=== PATIENT | female | born 1955 | race Caucasian/White ===

== ENCOUNTER 2018-03-24 12:29 | Emergency (ER) | payer SELFPAY ==
[~2018-03-24] VITALS: Ht 162.6 cm; Wt 90.3 kg
[2018-03-24 13:19] LABS: BASOPHILS % 0.3 % (0.0-1.0); EOSINOPHILS # (AUTO) 0.5 (0.0-0.4); HEMATOCRIT 42.5 % (34.2-44.1); HEMOGLOBIN 14.1 g/dL (12.0-16.0); LYMPHOCYTES # (AUTO) 2.3 (1.0-3.2); LYMPHOCYTES % 30.1 % (18.0-39.1); MEAN CORPUSCULAR HEMOGLOBIN 28.8 pg (28-32); MEAN CORPUSCULAR HGB CONC 33.2 g/dL (31-35); MEAN CORPUSCULAR VOLUME 86.7 fL (81-99); MONOCYTES # (AUTO) 0.5 (0.2-0.8); MONOCYTES % 6.6 % (4.4-11.3); NEUTROPHILS # (AUTO) 4.2 (2.1-6.9); NEUTROPHILS % 55.7 % (38.7-80.0); PLATELET COUNT 232 x10e3/uL (140-360); RED CELL DISTRIBUTION WIDTH 13.8 % (11.7-14.4)
[2018-03-24 13:29] LABS: INR 1.04; PROTHROMBIN TIME 12.8 seconds (11.9-14.5)
[2018-03-24 13:30] LABS: PARTIAL THROMBOPLASTIN TIME 34.9 seconds (23.8-35.5)
[2018-03-24 13:35] LABS: BILIRUBIN,URINE NEGATIVE (NEGATIVE); CLARITY,URINE CLEAR (CLEAR); COLOR,URINE YELLOW (YELLOW); EPITHELIAL CELLS,URINE RARE /LPF; KETONES,URINE NEGATIVE (NEGATIVE); LEUKOCYTE ESTERASE ,URINE NEGATIVE (NEGATIVE); NITRITE,URINE NEGATIVE (NEGATIVE); PROTEIN,URINE DIPSTICK NEGATIVE (NEGATIVE); RENAL EPITHELIAL CELLS,URINE RARE; URINE UROBILINOGEN 0.2 mg/dL (0.2 - 1)
[2018-03-24 13:44] LABS: ALANINE AMINOTRANSFERASE 32 IU/L (0-55); ALBUMIN 3.8 g/dL (3.5-5.0); ALBUMIN/GLOBULIN RATIO 0.8 (0.8-2.0); ALKALINE PHOSPHATASE 92 IU/L (40-150); AMYLASE 98 U/L (25-125); ANION GAP 14.8 mmol/L (8-16); BLOOD UREA NITROGEN 11 mg/dL (7-26); BUN/CREATININE RATIO 9 (6-25); CALCIUM 9.5 mg/dL (8.4-10.2); CARBON DIOXIDE 23 mmol/L (22-29); CHLORIDE 105 mmol/L (98-107); CREATINE KINASE 149 IU/L (29-168); CREATININE, SERUM 1.16 mg/dL (0.57-1.11); EST GLOMERULAR FILTRATION RATE 47 ML/MIN (60-); GLUCOSE 126 mg/dL (74-118); LIPASE 50 U/L (8-78); POTASSIUM 3.8 mmol/L (3.5-5.1); SODIUM 139 mmol/L (136-145)
[2018-03-24] MEDS ORDERED: DONNATAL/LIDOCAINE/MAALOX 30 ML SUSP PO STA (14:09)
[2018-03-24] MEDS: LIDOCAINE VISC 2% SOLN 15 ML UDC PO NR (14:11)
[2018-03-24] MEDS: NIFEDIPINE 10 MG CAP PO STA (14:11)
[2018-03-24] MEDS: MAGNESIUM/ALUMINUM/SIMETHICONE 30 ML UDC PO NR (14:11)
[2018-03-24] MEDS ORDERED: MAGNESIUM/ALUMINUM/SIMETHICONE 30 ML UDC ONE (14:13)
[2018-03-24] MEDS ORDERED: LIDOCAINE VISC 2% SOLN 15 ML UDC ONE (14:13)
[2018-03-24] MEDS ORDERED: BELLADONNA ALK/PHENOBARBITAL 5 ML UDC ONE (14:13)
[2018-03-24] MEDS: ACETAMINOPHEN 325 MG TAB PO ONE (16:01)
--- NOTE | 2018-03-24 18:57 | Diagnostic Imaging Report ---
EXAM: Right Upper Quadrant Ultrasound INDICATION: \S\nausea, vomiting, RUQ/Epigastric pain COMPARISON: None. TECHNIQUE: Transverse and longitudinal images of the right upper abdomen were obtained. FINDINGS: Exam limited by overlying bowel gas. Liver: Size: 16.3 cm in the right midclavicular line, enlarged Appearance: Increased echogenicity, smooth contour Mass: No focal masses Gallbladder: Stones/Sludge: None Wall: 0.2 cm Appearance: No wall thickening, pericholecystic fluid or hydrops. Sonographic Grimes's Sign: Negative. Patient complains of diffuse pain, not only localized to the right upper quadrant upon scanning. Bile Ducts: Intrahepatic Ducts: No dilatation Extrahepatic Ducts: Common bile duct measures 0.7 cm, mildly dilated. No echogenic intraluminal filling defects are identified. Pancreas: Visualized portions of the pancreatic neck and proximal body are normal. Kidneys: Length: Right 9.6 cm Echogenicity: Normal Collecting System: No hydronephrosis Stone: None Cyst/Mass: None Vessels: Aorta: Visualized portions are normal Inferior Vena Cava: Visualized portions are normal Main Portal Vein: 1.0 cm, normal size with hepatopetal flow. Free Fluid: No ascites or pleural effusion IMPRESSION: 1. No sonographic evidence of cholelithiasis or cholecystitis. 2. Mild dilation of the common bile duct. No echogenic intraluminal filling defects are noted. 3. Mild hepatomegaly with diffuse fatty infiltration. No focal lesions. Signed by: Dr. Alex Tariq M.D. on 03/24/2018 6:54 PM
[2018-03-24 19:27] VITALS: BP 158/95
== END 2018-03-24 19:34 | disposition home or self-care (01) ==
LOC: ER 12:29
DX: K92.1 Melena (principal); R10.13 Epigastric pain; R11.0 Nausea; I10 Essential (primary) hypertension
CPT/HCPCS: 36415; 76705; 80053; 81001; 82150; 82270; 82550; 82553; 83690; 83735; 84484; 85025; 85610; 85730; 86850; 86900; 93005; 99284

== ENCOUNTER 2022-03-14 06:52 | Observation (INO) | payer MEDICARE, OTHER ==
[~2022-03-14] VITALS: Ht 162.6 cm; Wt 81.6 kg
[~2022-03-14 06:52] MED LIST: AMLODIPINE BESY10 MG PO; ASPIR 8181 MG PO; CARAFATE1 GM/10 ML PO; CARVEDILOL12.5 MG PO; CYCLOBENZAPRINE10 MG PO; DEXILANT60 MG PO; FAMOTIDINE20 MG PO; HYDROCHLOROTHIA25 MG PO; HYDROXYZINE HCL25 MG PO; LEVAQUIN500 MG PO; LISINOPRIL10 MG PO; PREDNISONE10 MG PO; TESSALON PERLE100 MG PO
[2022-03-14] MEDS ORDERED: ONDANSETRON HCL INJ 2MG/ML 2ML 2 MG/ML VIAL IV STA (06:58)
[2022-03-14] MEDS ORDERED: Morphine 2mg Syringe 2 MG/ML SYR IV ONE (07:00)
[2022-03-14] MEDS ORDERED: ASPIRIN 81 MG CHEW TAB PO ONE (07:00)
[2022-03-14 07:22] LABS: CLARITY,URINE CLEAR (CLEAR); COLOR,URINE STRAW (YELLOW); KETONES,URINE NEGATIVE (NEGATIVE); LEUKOCYTE ESTERASE ,URINE NEGATIVE (NEGATIVE); NITRITE,URINE NEGATIVE (NEGATIVE); PROTEIN,URINE DIPSTICK NEGATIVE (NEGATIVE); URINE UROBILINOGEN 0.2 mg/dL (0.2 - 1)
[2022-03-14 07:28] LABS: AMPHETAMINES SCREEN,URINE NEGATIVE (NEGATIVE); BENZODIAZEPINES SCREEN,URINE NEGATIVE (NEGATIVE); PHENCYCLIDINE SCREEN,URINE NEGATIVE (NEGATIVE)
[2022-03-14] MEDS ORDERED: NITROGLYCERIN 2% OINT 1 GM PKT TOP ONE (07:30)
[2022-03-14 07:38] LABS: BASOPHILS % 0.3 % (0.0-1.0); EOSINOPHILS # (AUTO) 0.3 (0.0-0.4); EOSINOPHILS % 4.8 % (0.0-6.0); HEMATOCRIT 43.2 % (34.2-44.1); HEMOGLOBIN 13.7 g/dL (12.0-16.0); LYMPHOCYTES % 47.3 % (18.0-39.1); MEAN CORPUSCULAR HEMOGLOBIN 29.3 pg (28-32); MEAN CORPUSCULAR HGB CONC 31.7 g/dL (31-35); MEAN CORPUSCULAR VOLUME 92.5 fL (81-99); MONOCYTES # (AUTO) 0.4 (0.2-0.8); NEUTROPHILS # (AUTO) 2.5 (2.1-6.9); NEUTROPHILS % 40.4 % (38.7-80.0); PLATELET COUNT 226 x10e3/uL (140-360); RED BLOOD COUNT 4.67 x10e6/uL (3.6-5.1); RED CELL DISTRIBUTION WIDTH 13.5 % (11.7-14.4)
[2022-03-14 07:44] LABS: BACTERIA,URINE FEW /HPF; EPITHELIAL CELLS,URINE FEW /LPF; RBC,URINE 0-5 /HPF (0-5); WBC,URINE (MAN) 0-5 /HPF (0-5)
[2022-03-14 07:59] LABS: INR 0.83; PARTIAL THROMBOPLASTIN TIME 30.5 seconds (23.8-35.5); PROTHROMBIN TIME 12.2 seconds (11.9-14.5)
[2022-03-14] MEDS ORDERED: ACETAMINOPHEN 325 MG TAB PO ONE (08:00)
[2022-03-14 08:10] LABS: ALBUMIN 3.4 g/dL (3.5-5.0); ALBUMIN/GLOBULIN RATIO 0.8 (0.8-2.0); ANION GAP 14.1 mmol/L (8-16); CREATININE, SERUM 0.8 mg/dL (0.57-1.11); MAGNESIUM 1.9 MG/DL (1.3-2.1); POTASSIUM 4.1 mmol/L (3.5-5.1)
[2022-03-14] MEDS ORDERED: LABETALOL HCL 5 MG/ML 20ML VIAL IV ONE (08:15)
[2022-03-14 08:16] LABS: CREATINE KINASE MB 3.3 ng/mL (0-5.0)
[2022-03-14] MEDS ORDERED: ENOXAPARIN SODIUM INJ 100 MG/ML SYR SC ONE (08:30)
[2022-03-14] MEDS ORDERED: METOPROLOL TARTRATE 25 MG TAB PO ONE (08:30)
[2022-03-14] MEDS: FAMOTIDINE 20 MG/2 ML VIAL IV SCH ×2 (09:15→20:59)
[2022-03-14] MEDS ORDERED: CLONIDINE HCL0.1 MG PO (09:38)
[2022-03-14] MEDS ORDERED: GABAPENTIN300 MG PO (09:38)
[2022-03-14] MEDS ORDERED: ACETAMINOPHEN-1 EAC4 PO (09:38)
[2022-03-14] MEDS ORDERED: PROVENTIL HFA6.7 GM INH (09:38)
[2022-03-14] MEDS ORDERED: BUDESONIDE-FO10.2 G1 INH (09:38)
[2022-03-14] MEDS ORDERED: LACTULOSE10 GM/151 PO (09:38)
[2022-03-14] MEDS ORDERED: CARVEDILOL6.25 MG PO (09:38)
[2022-03-14] MEDS ORDERED: ALLOPURINOL100 MG PO (09:38)
[2022-03-14] MEDS ORDERED: ATORVASTATIN CA20 MG PO (09:38)
[2022-03-14] MEDS ORDERED: PANTOPRAZOLE SO40 MG PO (09:38)
[2022-03-14] MEDS ORDERED: LOSARTAN-HCTZ1 EAC1 PO (09:38)
[2022-03-14] MEDS ORDERED: NON-FORMULARY MEDICATION (Acetaminophen With Codeine (Acetaminophen-Cod #4 Tablet) 1 TAB) PO PRN (10:45)
[2022-03-14] MEDS ORDERED: ACETAMINOPHEN/CODEINE 300MG - 30MG TAB PO PRN (11:15)
[2022-03-14] MEDS: NITROGLYCERIN 2% OINT 1 GM PKT TOP SCH ×2 (12:32→17:56)
[2022-03-14 13:55] VITALS: BP 152/108
[2022-03-14 13:56] VITALS: BP 152/108
[2022-03-14 14:06] VITALS: BP 152/108
[2022-03-14] MEDS: Morphine 2mg Syringe 2 MG/ML SYR IV PRN ×2 (14:59→21:00)
[2022-03-14] MEDS: GABAPENTIN 100 MG CAP PO SCH ×2 (14:59→20:53)
[2022-03-14] MEDS ORDERED: CARVEDILOL PO SCH (17:00)
[2022-03-14] MEDS: CLONIDINE HCL 0.1 MG TAB PO SCH (17:11)
[2022-03-14] MEDS: CARVEDILOL 3.125 MG TAB PO SCH (17:11)
[2022-03-14 19:10] LABS: CREATINE KINASE MB 3.3 ng/mL (0-5.0)
[2022-03-14 20:00] VITALS: BP 151/85
[2022-03-14] MEDS ORDERED: METOPROLOL TARTRATE 25 MG TAB PO SCH (20:00)
[2022-03-14] MEDS: ONDANSETRON HCL INJ 2MG/ML 2ML 2 MG/ML VIAL IV PRN (21:00)
[2022-03-14] MEDS ORDERED: ATORVASTATIN 20 MG TAB PO SCH (21:00)
[2022-03-15] VITALS: BP 103/52
[2022-03-15 04:00] VITALS: BP 108/59
[2022-03-15 06:39] LABS: BASOPHILS % 0.3 % (0.0-1.0); EOSINOPHILS # (AUTO) 0.2 (0.0-0.4); EOSINOPHILS % 3.9 % (0.0-6.0); HEMOGLOBIN 11.6 g/dL (12.0-16.0); LYMPHOCYTES # (AUTO) 2.6 (1.0-3.2); LYMPHOCYTES % 44.3 % (18.0-39.1); MEAN CORPUSCULAR HEMOGLOBIN 29.1 pg (28-32); MEAN CORPUSCULAR HGB CONC 31.4 g/dL (31-35); MEAN CORPUSCULAR VOLUME 92.7 fL (81-99); MONOCYTES # (AUTO) 0.5 (0.2-0.8); MONOCYTES % 7.8 % (4.4-11.3); NEUTROPHILS # (AUTO) 2.6 (2.1-6.9); NEUTROPHILS % 43.5 % (38.7-80.0); PLATELET COUNT 212 x10e3/uL (140-360); RED BLOOD COUNT 3.99 x10e6/uL (3.6-5.1); RED CELL DISTRIBUTION WIDTH 13.5 % (11.7-14.4)
[2022-03-15] MEDS: NITROGLYCERIN 2% OINT 1 GM PKT TOP SCH ×4 (06:50→18:00)
[2022-03-15 07:28] LABS: ALBUMIN 2.9 g/dL (3.5-5.0); ALBUMIN/GLOBULIN RATIO 0.8 (0.8-2.0); ANION GAP 14.1 mmol/L (8-16); CALCIUM 8.6 mg/dL (8.4-10.2); CHOL/HDL RATIO 5.3 (3.0-3.6); CREATININE, SERUM 0.8 mg/dL (0.57-1.11); POTASSIUM 4.1 mmol/L (3.5-5.1)
[2022-03-15 07:30] VITALS: BP 120/59
[2022-03-15] MEDS: Morphine 2mg Syringe 2 MG/ML SYR IV PRN (08:35)
[2022-03-15] MEDS: ONDANSETRON HCL INJ 2MG/ML 2ML 2 MG/ML VIAL IV PRN (08:37)
[2022-03-15 08:42] VITALS: BP 120/59
[2022-03-15] MEDS: CARVEDILOL 3.125 MG TAB PO SCH ×2 (08:47→17:19)
[2022-03-15] MEDS: CLONIDINE HCL 0.1 MG TAB PO SCH (08:47)
[2022-03-15] MEDS: FAMOTIDINE 20 MG/2 ML VIAL IV SCH (08:47)
[2022-03-15] MEDS: GABAPENTIN 100 MG CAP PO SCH ×2 (08:48→15:00)
[2022-03-15] MEDS ORDERED: ASPIRIN 81 MG ENTERIC COATED PO SCH (09:00)
[2022-03-15] MEDS ORDERED: ALLOPURINOL 100 MG TAB PO SCH (09:00)
[2022-03-15] MEDS ORDERED: LOSARTAN POTASSIUM 100 MG TAB PO SCH (09:00)
[2022-03-15] MEDS ORDERED: LISINOPRIL 20 MG TAB PO SCH (09:00)
[2022-03-15] MEDS ORDERED: NON-FORMULARY MEDICATION (Losartan/Hydrochlorothiazide (Losartan-Hctz 100-25 Mg Tab) 1 TAB PO SCH (09:00)
[2022-03-15] MEDS ORDERED: AMLODIPINE BESYLATE 5 MG TAB PO SCH (09:00)
[2022-03-15] MEDS ORDERED: PANTOPRAZOLE SOD 40 MG TABEC PO SCH (09:00)
[2022-03-15] MEDS ORDERED: HYDROCHLOROTHIAZIDE 25 MG TAB PO SCH (09:00)
[2022-03-15] MEDS ORDERED: ASPIRIN 81 MG CHEW TAB PO SCH (09:00)
[2022-03-15 10:05] LABS: CREATINE KINASE MB 1.9 ng/mL (0-5.0)
[2022-03-15 11:10] VITALS: BP 127/71
[2022-03-15] MEDS ORDERED: REGADENOSON 0.4 MG/5 ML SYR IV ONE (12:19)
[2022-03-15 16:05] VITALS: BP 147/80
[2022-03-15] MEDS ORDERED: CLONIDINE HCL 0.1 MG TAB PO SCH (21:00)
== END 2022-03-15 18:52 | disposition home or self-care (01) ==
LOC: ER 06:57 → ERHOLD 09:14 → INTOOBSV 09:14 → MED/SURG 13:29
PROVIDERS: ADMIT Internal Medicine; ATTEND Internal Medicine
DX: R07.2 Precordial pain (principal); J44.9 Chronic obstructive pulmonary disease, unspecified; M10.9 Gout, unspecified; K21.9 Gastro-esophageal reflux disease without esophagitis; I10 Essential (primary) hypertension; Z20.822 Contact with and (suspected) exposure to COVID-19; Z91.14 Patient's other noncompliance with medication regimen; I25.10 Atherosclerotic heart disease of native coronary artery without angina pectoris; Z95.5 Presence of coronary angioplasty implant and graft; I16.0 Hypertensive urgency; G89.29 Other chronic pain; E66.9 Obesity, unspecified; Z68.30 Body mass index [BMI] 30.0-30.9, adult
CPT/HCPCS: 36415 ×2; 71045; 78452; 80053 ×2; 80061; 80307; 81001; 82550 ×2; 82553 ×2; 83690; 83735; 83880; 84484 ×2; 85025 ×2; 85610; 85730; 87086; 93005; 93017; 93306; 94799 ×2; 99284; A9502; C9113; G0378 ×2; J1650; J2270 ×2; J2405 ×2; J2785; U0002

== ENCOUNTER → 2022-10-30 | Outpatient (CLI) | payer MEDICARE ==
[~2022-10-30] MED LIST changes: +ACETAMINOPHEN-1 EAC4 PO; +ALLOPURINOL100 MG PO; +ATORVASTATIN CA20 MG PO; +BUDESONIDE-FO10.2 G1 INH; +CARVEDILOL6.25 MG PO; +CLONIDINE HCL0.1 MG PO; +GABAPENTIN300 MG PO; +LACTULOSE10 GM/151 PO; +LOSARTAN-HCTZ1 EAC1 PO; +PANTOPRAZOLE SO40 MG PO; +PROVENTIL HFA6.7 GM INH; +REGADENOSON 0.4 MG/5 ML SYR IV ONE
== END ==
LOC: NM 06:41
PROVIDERS: ATTEND Family Medicine
DX: R91.1 Solitary pulmonary nodule (principal); R94.31 Abnormal electrocardiogram [ECG] [EKG]
CPT/HCPCS: 78452; 93017; A9502; J2785

== ENCOUNTER → 2022-10-31 | Outpatient (CLI) | payer MEDICARE ==
[~2022-10-31] MED LIST changes: +IOPAMIDOL 370 MG/ML 100 ML INFUS..BTL INJ ONE; -REGADENOSON 0.4 MG/5 ML SYR IV ONE
[2022-10-31 11:10] LABS: CREATININE, SERUM 0.89 mg/dL (0.57-1.11)
== END ==
LOC: CT 10:22
PROVIDERS: ATTEND Family Medicine
DX: R91.1 Solitary pulmonary nodule (principal); R94.31 Abnormal electrocardiogram [ECG] [EKG]
CPT/HCPCS: 36415; 71260; 82565; 84520; Q9967

== ENCOUNTER → 2022-12-26 | Day surgery (SDC) | payer MEDICARE ==
[2022-12-24 12:10] LABS: ANION GAP 15.3 mmol/L (8-16); CALCIUM 8.6 mg/dL (8.4-10.2); CREATININE, SERUM 1.03 mg/dL (0.57-1.11); POTASSIUM 4.3 mmol/L (3.5-5.1)
[~2022-12-26] MED LIST changes: +BALANCED SALT SOLN (OPTH) 15 ML BTL IO ONE; +BUPIVACAINE HC 0.75% PF 10ML VIAL INJ ONE; +CYCLOPENTOLATE HCL 2% OPTH SOLN 2 ML BTL OP ONE; +EPINEPHRINE HCL 1:1000 1ML 1 MG/ML AMP ONE; +GATIFLOXACIN(OPTH) 5 ML LIQD ONE; -IOPAMIDOL 370 MG/ML 100 ML INFUS..BTL INJ ONE; +LACTATED RINGER'S 1,000 ML ONE; +LIDOCAINE 2% /EPINEPHRINE 20 ML SDV INJ ONE; +LIDOCAINE HCL 2% LOCAL INJ 5 ML SDV VIAL INJ ONE; +LIDOCAINE HCL-PF 4% 40 MG/1 ML 5ML AMP ONE; +PHENYLEPHRINE HCL 2 ML DROPS ONE; +PILOCARPINE HCL(OPTH) 15 ML LIQD ONE; +POVIDONE IODINE 0.05% 0.05 % ML PO ONE; +POVIDONE IODINE 5% (OPTH) 30 ML BTL ONE; +PROPOFOL IV EMULSION 10 MG/ML 20 ML VIAL ONE; +SYMBICORT 16010.2 GM INH; +TOBRAMYCIN/DEXAMETHASONE(OPTH) 3.5 GM TUBE ONE
[2022-12-26 06:25] LABS: BASOPHILS % 0.1 % (0.0-1.0); EOSINOPHILS # (AUTO) 0.3 (0.0-0.4); EOSINOPHILS % 3.9 % (0.0-6.0); HEMATOCRIT 42.5 % (34.2-44.1); HEMOGLOBIN 13.7 g/dL (12.0-16.0); LYMPHOCYTES # (AUTO) 3.1 (1.0-3.2); MEAN CORPUSCULAR HEMOGLOBIN 29.7 pg (28-32); MEAN CORPUSCULAR HGB CONC 32.2 g/dL (31-35); MEAN CORPUSCULAR VOLUME 92.2 fL (81-99); MONOCYTES # (AUTO) 0.5 (0.2-0.8); NEUTROPHILS # (AUTO) 3.3 (2.1-6.9); NEUTROPHILS % 45.9 % (38.7-80.0); PLATELET COUNT 191 x10e3/uL (140-360); RED BLOOD COUNT 4.61 x10e6/uL (3.6-5.1); RED CELL DISTRIBUTION WIDTH 13.3 % (11.7-14.4)
[2022-12-26 08:05] VITALS: BP 112/82
== END | disposition home or self-care (01) ==
LOC: OR 07:03
PROVIDERS: ATTEND Ophthalmology
DX: H25.12 Age-related nuclear cataract, left eye (principal); I10 Essential (primary) hypertension; J44.9 Chronic obstructive pulmonary disease, unspecified; Z88.0 Allergy status to penicillin; Z91.018 Allergy to other foods; Z01.812 Encounter for preprocedural laboratory examination; Z79.02 Long term (current) use of antithrombotics/antiplatelets; Z79.899 Other long term (current) drug therapy
CPT/HCPCS: 36415; 66984; 80048; 85025; J2001 ×2; J2704; J7121; V2632; J0171

== ENCOUNTER 2025-04-18 11:51 | Inpatient (IN) | payer MEDICARE ==
[~2025-04-18] VITALS: Ht 162.6 cm; Wt 81.6 kg
[~2025-04-18 11:51] MED LIST changes: -BALANCED SALT SOLN (OPTH) 15 ML BTL IO ONE; -BUPIVACAINE HC 0.75% PF 10ML VIAL INJ ONE; -CYCLOPENTOLATE HCL 2% OPTH SOLN 2 ML BTL OP ONE; -EPINEPHRINE HCL 1:1000 1ML 1 MG/ML AMP ONE; -GATIFLOXACIN(OPTH) 5 ML LIQD ONE; -LACTATED RINGER'S 1,000 ML ONE; -LIDOCAINE 2% /EPINEPHRINE 20 ML SDV INJ ONE; -LIDOCAINE HCL 2% LOCAL INJ 5 ML SDV VIAL INJ ONE; -LIDOCAINE HCL-PF 4% 40 MG/1 ML 5ML AMP ONE; -PHENYLEPHRINE HCL 2 ML DROPS ONE; -PILOCARPINE HCL(OPTH) 15 ML LIQD ONE; -POVIDONE IODINE 0.05% 0.05 % ML PO ONE; -POVIDONE IODINE 5% (OPTH) 30 ML BTL ONE; -PROPOFOL IV EMULSION 10 MG/ML 20 ML VIAL ONE; -TOBRAMYCIN/DEXAMETHASONE(OPTH) 3.5 GM TUBE ONE
[2025-04-18 12:25] VITALS: TEMP 97.9
[2025-04-18] MEDS ORDERED: CLONIDINE HCL 0.1 MG TAB ONE (14:57)
[2025-04-18] MEDS: CLONIDINE HCL 0.1 MG TAB PO ONE (14:58)
[2025-04-18] MEDS ORDERED: SODIUM CHLORIDE 0.9% 1000ML 1,000 ML ONE (16:36)
[2025-04-18 16:37] LABS: BASOPHILS % 0.1 % (0.0-1.0); EOSINOPHILS % 0.9 % (0.0-6.0); LYMPHOCYTES % 34.7 % (18.0-39.1); MONOCYTES % 7.0 % (4.4-11.3); NEUTROPHILS % 57.2 % (38.7-80.0); RED CELL DISTRIBUTION WIDTH 13.2 % (11.7-14.4)
[2025-04-18] MEDS: SODIUM CHLORIDE 0.9% 1000ML 1,000 ML IV STA (16:37)
[2025-04-18 16:46] LABS: EST GLOMERULAR FILTRATION RATE 73.0 ML/MIN (>=60)
[2025-04-18 16:48] LABS: INR 0.89
[2025-04-18] MEDS ORDERED: Morphine 4mg INJECTION 4 MG/ML INJ IV PRN (17:00)
[2025-04-18] MEDS ORDERED: NITROGLYCERIN 0.4 MG SUBL SL PRN (17:00)
[2025-04-18] MEDS ORDERED: ONDANSETRON HCL INJ 2MG/ML 2ML 2 MG/ML VIAL IV PRN (17:00)
[2025-04-18] MEDS: ASPIRIN 81 MG CHEW TAB PO ONE (17:20)
[2025-04-18] MEDS: CLOPIDOGREL BISULFATE 75 MG TAB PO ONE (17:22)
[2025-04-18 20:13] VITALS: PULSE 90; RESP 17
[2025-04-18 21:41] VITALS: BP 154/50; O2SAT 97
[2025-04-18] MEDS ORDERED: ASPIRIN81 MG PO (21:46)
[2025-04-18] MEDS ORDERED: LABETALOL HCL 5 MG/ML 20ML VIAL IV PRN (22:15)
[2025-04-18] MEDS ORDERED: NON-FORMULARY MEDICATION (Acetaminophen With Codeine (Acetaminophen-Cod #4 Tablet) 1 TAB) PO PRN (22:15)
[2025-04-18] MEDS ORDERED: ACETAMINOPHEN 325 MG TAB PO PRN (22:30)
[2025-04-18] MEDS ORDERED: POLYETHYLENE GLYCOL 3350 17 GM PACK PO PRN (22:30)
[2025-04-18] MEDS: ACETAMINOPHEN/CODEINE 300MG - 30MG TAB PO PRN (23:35)
[2025-04-19] VITALS (7 sets, daily range): BP systolic 140–176; BP diastolic 68–96; PULSE 69–85; RESP 16–18; TEMP 97.7–97.9; O2SAT 97–100
[2025-04-19 05:49] LABS: BASOPHILS % 0.2 % (0.0-1.0); EOSINOPHILS % 2.9 % (0.0-6.0); LYMPHOCYTES % 47.3 % (18.0-39.1); MONOCYTES % 7.9 % (4.4-11.3); NEUTROPHILS % 41.4 % (38.7-80.0); RED CELL DISTRIBUTION WIDTH 13.4 % (11.7-14.4)
[2025-04-19 06:28] LABS: CHOL/HDL RATIO 7.0 (3.0-3.6); EST GLOMERULAR FILTRATION RATE 86.0 ML/MIN (>=60); LDL CHOLESTEROL 173.0 MG/DL (60-130)
[2025-04-19 06:50] LABS: PHOSPHORUS 3.4 MG/DL (2.3-4.7)
[2025-04-19] MEDS: ALLOPURINOL 100 MG TAB PO SCH (08:58)
[2025-04-19] MEDS: ASPIRIN 81 MG ENTERIC COATED PO SCH (08:58)
[2025-04-19] MEDS: DOCUSATE SODIUM 100 MG CAP PO SCH (08:59)
[2025-04-19] MEDS: GABAPENTIN 300 MG CAP PO SCH (08:59)
[2025-04-19] MEDS: CLOPIDOGREL BISULFATE 75 MG TAB PO SCH (08:59)
[2025-04-19] MEDS: CLONIDINE HCL 0.1 MG TAB PO SCH (09:00)
[2025-04-19] MEDS: LOSARTAN POTASSIUM 100 MG TAB PO SCH (09:00)
[2025-04-19] MEDS ORDERED: PLAVIX75 MG PO (19:29)
[2025-04-19] MEDS ORDERED: ATORVASTATIN 20 MG TAB PO SCH (21:00)
== END 2025-04-19 20:28 | disposition home or self-care (01) | DRG 305 ==
LOC: ER 12:45 → ERHOLD 16:50 → MED/SURG3 20:50
PROVIDERS: ADMIT Internal Medicine; ATTEND Internal Medicine
DX: I16.0 Hypertensive urgency (principal); I10 Essential (primary) hypertension; E78.5 Hyperlipidemia, unspecified; J44.9 Chronic obstructive pulmonary disease, unspecified; K21.9 Gastro-esophageal reflux disease without esophagitis; M10.9 Gout, unspecified; R07.9 Chest pain, unspecified; Z79.51 Long term (current) use of inhaled steroids; Z98.61 Coronary angioplasty status; Z90.710 Acquired absence of both cervix and uterus; Z85.41 Personal history of malignant neoplasm of cervix uteri; Z88.0 Allergy status to penicillin; Z91.018 Allergy to other foods; Z80.0 Family history of malignant neoplasm of digestive organs; Z80.8 Family history of malignant neoplasm of other organs or systems
CPT/HCPCS: 36415; 70450; 71045; 72125; 72170; 80053; 80061; 82550; 83036; 83735; 83880; 84100; 84439; 84443; 84484; 85025; 85610; 85730; 93005; 99283; J7030